=== PATIENT | male | born 1985 | race Caucasian/White ===

== ENCOUNTER 2018-09-03 16:26 | Day surgery (SDC) | payer OTHER ==
[2018-09-03] MEDS ORDERED: CEFAZOLIN 2 GM/50 ML (PMX) 50 ML IVPB (17:56)
[2018-09-03] MEDS ORDERED: LACTATED RINGER'S 1,000 ML IV* (18:00)
[2018-09-03] MEDS ORDERED: MIDAZOLAM 1 MG/ML 2 ML INJ (18:43)
[2018-09-03] MEDS ORDERED: FENTAnyl 50 MCG/ML VIAL (18:43)
[2018-09-03] MEDS ORDERED: CEFAZOLIN 1 GM INJ (18:53)
[2018-09-03] MEDS ORDERED: PROPOFOL 20 ML (18:53)
[2018-09-03] MEDS ORDERED: METOCLOPRAMIDE 10 MG INJ (18:53)
[2018-09-03] MEDS ORDERED: KETOROLAC 30 MG INJ (18:53)
[2018-09-03] MEDS ORDERED: ONDANSETRON 4 MG INJ (18:53)
[2018-09-03] MEDS ORDERED: DEXAMETHASONE 4 MG/ML 1 ML INJ (18:54)
[2018-09-03] MEDS ORDERED: OXYCODONE/ACETAMINOPHEN (5/325) TAB PO (19:00)
[2018-09-03] MEDS ORDERED: DIPHENHYDRAMINE 50 MG INJ IV (19:00)
[2018-09-03] MEDS ORDERED: METOCLOPRAMIDE 10 MG INJ IV (19:00)
[2018-09-03] MEDS ORDERED: MEPERIDINE 25 MG INJ IV (19:00)
[2018-09-03] MEDS ORDERED: FENTAnyl 50 MCG/ML VIAL IV ×3 (19:00)
[2018-09-03] MEDS ORDERED: LABETALOL HCL 20MG INJ IV (19:00)
[2018-09-03] MEDS ORDERED: hydrALAzine 20 MG INJ IV (19:00)
[2018-09-03] MEDS ORDERED: ONDANSETRON 4 MG INJ IV (19:00)
[2018-09-03] MEDS ORDERED: HYDROmorphONE 1 MG/5 ML IV SYRINGE IV ×3 (19:00)
[2018-09-03] MEDS ORDERED: EPHEDrine SULFATE 50 MG/5 ML SYG IV (19:00)
[2018-09-03] MEDS: BUPIVACAINE 0.5% (SDV) 30 ML INJ (19:01)
== END 2018-09-03 20:47 | disposition home or self-care (01) ==
LOC: SDS 16:26
DX: T84.84XA Pain due to internal orthopedic prosthetic devices, implants and grafts, initial encounter (principal); Y83.8 Other surgical procedures as the cause of abnormal reaction of the patient, or of later complication, without mention of misadventure at the time of the procedure
CPT/HCPCS: 20680; 88300